=== PATIENT | male | born 1980 | race Caucasian/White ===

== ENCOUNTER 2020-04-08 14:13 | Outpatient (RCR) | payer OTHER, SELFPAY ==
[2020-04-08 14:49] LABS: COVID-19 Test Negative (Negative)
[2020-04-22 15:23] LABS: COVID-19 Test Negative (Negative)
[2020-04-30 14:27] LABS: COVID-19 Test Negative (Negative); IDNOW Serial# 55D5AD1C
[2020-05-22 08:59] LABS: SARS-COV-2 PCR UMBRL Not Detected
[2020-05-23 12:23] LABS: SARS-COV-2 PCR UMBRL Not Detected
== END 2020-04-08 14:14 | disposition home or self-care (01) ==
LOC: HO.EMPCOV 14:13
PROVIDERS: Visit Provider Internal Medicine
DX: Z20.828 Contact with and (suspected) exposure to other viral communicable diseases (principal)
CPT/HCPCS: 87635; C9803; U0003

== ENCOUNTER → 2021-01-01 13:55 | Outpatient (BNVA) | payer SELFPAY | DX: Z02.1 Encounter for pre-employment examination (principal) ==